=== PATIENT | female | born 1965 | race Caucasian/White ===

== ENCOUNTER 2020-06-07 07:31 | Outpatient (CLI) | payer BC, SELFPAY ==
--- NOTE | ~2020-06-07 | MR_ITS ---
EXAMINATION: MR knee RT wo con DATE: 06/07/2020 09:22 INDICATION: Right knee pain TECHNIQUE: Magnetic resonance imaging (MRI) of the right knee was performed without intravenous contr ast. Sequences included coronal PD-weighted FSE, coronal PD-weighted FS FSE, sagittal T2-weighted FS E, sagittal PD-weighted FS FSE and axial PD weighted fat saturated FSE. COMPARISON: None. FINDINGS: Evaluation mildly limited by mild to moderate motion artifacts some degree on all sequences. Medial compartment: Medial meniscus is normal. Partial-thickness chondral ulceration and fissuring without degenerative s ubchondral changes at the central aspect of the medial tibial plateau as well as the anterior to cent ral weightbearing medial femoral condyle. Lateral compartment: There is lateral extrusion of the lateral meniscal body. Radial tear/avulsion of the posterior root o f the lateral meniscus. Extending medially from the posterior horn is a residual intact meniscofemora l ligament of Hendricks. Small region of partial-thickness chondral ulceration at the anterior weightb earing lateral femoral condyle. There is some chondral surface irregularity along the lateral tibial plateau. Patellofemoral compartment: Extensive patellar cartilage loss with chondral surface irregularity, in places approaching full-thic kness with underlying subarticular edema at the lateral patellar facet. Partial-thickness cartilage l oss with smooth chondral surface along the lateral margin of the lateral trochlea. Ligaments and tendons: Anterior and posterior cruciate ligaments are normal. The medial collateral ligament and fibular beverley ateral ligament complex are normal. The extensor mechanism is normal. The visualized medial and later al hamstring tendons as well as the iliotibial band are normal. Fluid: Physiologic amount of fluid in the joint space. No loose osteochondral bodies identified. Osseous/other: Normal marrow signal aside from the small focus of subarticular edema at the lateral patellar facet. No fracture or pathologic marrow replacing process. IMPRESSION: 1. Radial tear/avulsion at the posterior root of the lateral meniscus with lateral extrusion of the m eniscal body. 2. 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 Sensitivity and specificity for evaluation of the cartilage is however limited by motion artifact. Reviewed, dictated and finalized at location A. IMPRESSION: 1. Radial tear/avulsion at the posterior root of the lateral meniscus with late ral extrusion of the meniscal body. 2. Mild tricompartmental osteoarthritis with moderate to high-grade patellar ch ondromalacia and regions of moderate chondromalacia in the medial and lateral c ompartments. Sensitivity and specificity for evaluation of the cartilage is how ever limited by motion artifact.
== END 2020-06-07 07:32 | disposition home or self-care (01) ==
PROVIDERS: PCP Orthopaedic Surgery; Visit Provider Orthopaedic Surgery
DX: M25.561 Pain in right knee (principal); S83.281A Other tear of lateral meniscus, current injury, right knee, initial encounter; M17.11 Unilateral primary osteoarthritis, right knee; M94.261 Chondromalacia, right knee
CPT/HCPCS: 73721

== ENCOUNTER 2020-06-21 15:11 | Outpatient (CLI) | payer BC, SELFPAY ==
--- NOTE | 2020-06-21 15:30 | ECG_ITS ---
Measurements Intervals [place] Rate: 64 P: 39 MD: 177 QRS: 21 QRSD: 96 T: 21 QT: 408 QTc: 423 Interpretive Statements SINUS RHYTHM DELAYED PRECORDIAL R/S TRANSITION BASELINE ARTIFACT- II, III, AVR, AVL, AVF, V3-V6 BORDERLINE ECG Electronically Signed On 06-21-2020 15:36:29 CDT by Nate Boateng D.O.
== END 2020-06-21 15:12 | disposition home or self-care (01) ==
PROVIDERS: PCP Family Medicine; Visit Provider Orthopaedic Surgery
DX: Z01.810 Encounter for preprocedural cardiovascular examination (principal); I10 Essential (primary) hypertension
CPT/HCPCS: 93005

== ENCOUNTER → 2020-06-23 02:08 | Outpatient (CLI) | payer BC, SELFPAY ==
[2020-06-24 14:52] LABS: SARS-CoV-2 RNA PCR Negative
== END ==
PROVIDERS: PCP Family Medicine; Visit Provider Orthopaedic Surgery
DX: Z01.812 Encounter for preprocedural laboratory examination (principal); Z20.822 Contact with and (suspected) exposure to COVID-19
CPT/HCPCS: C9803; U0003; U0005

== ENCOUNTER 2020-06-27 01:17 | Day surgery (SDC) | payer BC, SELFPAY ==
[2020-06-18 10:38] VITALS: BMI 32.5
--- NOTE | 2020-06-20 10:11 | PM.IMHP ---
H&P: HPI History of Present Illness Date/Time: Knee Pain 54 year old female presents for Rt knee pain. Pt. states that she does not remember a time frame as to when the Rt knee started causing her pain but she has had weakness in the knee for approx 3years. Pt. states that her mother had OA and a total knee replacement at the age of 5757 years old. She states that she has not had any surgical procedures, injections or physical therapy for the Rt knee. She stated no injury was known. Pt. had an MRI performed and would like to proceed with the next plan of care at this time. Involved knee: right Onset: gradual Location of pain: other (entire knee region with radiating pain ) Pain scale (0-10): 8 Character: dull ache and other (sharp at times ) Timing of pain: intermittent (with periods of longer lasting pain ) Exacerbated by: sitting (crossed leg ), kneeling, squatting and prolonged activity Relieved by: brace, elevation, ice, rest and NSAIDs Associated symptoms: Reports giving way and grating History of occupational/recreational activity with repetitive motion: No History of prior knee injury: No Review of Systems Review of Systems: All systems reviewed & are unremarkable except as noted in HPI and below Constitutional: Constitutional: Denies headache(s) and Denies weakness Eyes: Eyes: Denies blurry vision, Denies change in vision and Denies loss of vision ENT: Denies dizziness, Denies dry mouth, Denies headache(s) and Denies nasal congestion Cardiovascular: Cardiovascular: Denies chest pain, Denies syncope, Denies leg edema and Denies dyspnea on exertion Respiratory: Respiratory: Denies cough and Denies dyspnea on exertion Gastrointestinal: Gastrointestinal: Denies abdominal pain, Denies constipation and Denies diarrhea Genitourinary: Genitourinary: Denies urinary frequency Musculoskeletal: Musculoskeletal: Reports as per HPI and Denies numbness Integumentary/Breasts: Skin/Breast: Reports system reviewed and no additional complaints, except as docu Neurologic: Denies dizziness, Denies syncope, Denies headache(s), Denies loss of vision, Denies numbness and Denies weakness Psychiatric: Psychiatric: Reports no additional psychiatric complaints Endocrine: Endocrine: Reports no additional endocrine complaints Hematologic/Lymphatic: Hematologic/Lymphatic: Reports no additional hematologic/lymphatic complaints [facility] Past Medical History Medical History Chondromalacia Hypertension Lateral meniscus tear Medial meniscus tear Right knee pain Wears glasses Surgical History Surgical History History of x3 History of cholecystectomy 2016 History of hysterectomy 2005 Family History Family History Father Hypertension Family history of cardiovascular disease Family history of heart disease in male family member before age 55 Mother Hypertension Family history of malignant melanoma, Onset Age: 69 Diabetes mellitus Family history of diabetes mellitus in first degree relative Patient's mother is Grandparent Family history of cardiovascular disease Cerebrovascular accident Family history of malignant neoplasm Family history of heart disease in male family member before age 55 Other Arthritis Family history of pancreatic cancer Heart disease High cholesterol Melanoma Social History Social History Smoking status: Never smoker Second hand tobacco smoke exposure: No Alcohol intake: never Substance use: never Substance use type: does not use Gender identity (if verbalized by the patient): Female Meds Home Medications and Allergies Home Medications Medication Instructions Recorded Confirmed Type cholecalciferol (vitamin D3) 25 50 mcg P
[2020-06-27] VITALS (7 sets, daily range): BP systolic 117–155; BP diastolic 68–91; PULSE 70–93; RESP 10–20; TEMP 36.7–37.1; O2SAT 97–100
--- NOTE | 2020-06-27 07:21 | WPDHPUPDATE1 ---
History and Physical Update Update Date/Time: 06/27/20 07:21 History and Physical has been reviewed, including an updated exam of the patient. There are NO changes in the patient's condition. Risks, benefits, and alternatives have been discussed and questions answered. Patient agrees to proceed with procedure.
--- NOTE | 2020-06-27 10:47 | SUR.PREOP ---
crutch training done,pt given care notes on crutch training and ordered crutches. pt informed delay in procedure,called spouse asked to come in .
--- NOTE | 2020-06-27 10:56 | SUR.PREOP ---
1/2inch scratch to right knee,healing,pt states 2 weeks old,called into or room relayed message to dr aviles's circulating rn yola wilks and states to continue preparing pt ,dr aviles will see pt after present surgery.
[2020-06-27] MEDS: ACETAMINOPHEN 500 MG TABLET 1000 MG PO (11:00)
[2020-06-27] MEDS: CELECOXIB 200 MG CAPSULE PO (11:00)
[2020-06-27] MEDS: LACTATED RINGERS 1,000 ML 30 ML IV CONT (11:07)
--- NOTE | 2020-06-27 12:20 | SUR.PREOP ---
dr aviles at side observed scratch to right knee,to proceed with surgery.marked right knee.
--- NOTE | 2020-06-27 12:35 | WPDANESEPPF ---
Anes - Initial Pre Proc Eval Procedure: Operation Date: 06/27/20 12:00 Proposed Procedures p Right Knee Arthroscopy - Santosh Johnston MD Date/Time: 06/27/20 12:35 Surgeon: Santosh Johnston MD Pre Op Diagnosis: right knee lateral meniscus tear, chondromalsia Patient Data Age: 54 Gender: F Height: 5 ft 9 in Weight: 104.4 kg Last Vital Signs Temp 37.1 C 06/27/20 10:10 Pulse 85 06/27/20 10:10 Resp 16 06/27/20 10:10 BP 143/91 H 06/27/20 10:10 Pulse Ox 100 06/27/20 10:10 Allergies Allergy/AdvReac Type Severity Reaction Status Date / Time No Known Allergies Allergy Verified 06/27/20 10:32 Home Medications Medication Instructions Recorded Confirmed Type cholecalciferol (vitamin D3) 25 50 mcg PO DAILY tablet 05/31/20 06/27/20 History mcg (1,000 unit) tablet losartan 50 mg-hydrochlorothiazide 1 tablet PO DAILY 05/31/20 06/27/20 History 12.5 mg tablet metoprolol succinate 50 mg 50 mg PO HS 05/31/20 06/27/20 History tablet,extended release 24 hr omeprazole 20 mg capsule,delayed 20 mg PO DAILY 05/31/20 06/27/20 History release vitamin B comp and C no.3 15 mg-10 1 cap PO DAILY 05/31/20 06/27/20 History mg-50 mg-5 mg-300 mg capsule tramadol 50 mg tablet 50 mg PO BID PRN #30 tablet 06/12/20 06/27/20 Rx ibuprofen 600 mg PO Q6H PRN 06/18/20 06/27/20 History Patient hx anesthesia problems: post op nausea/vomiting Family hx anesthesia problems: none PMFSH Past Medical History Medical History Chondromalacia Hypertension Lateral meniscus tear Medial meniscus tear Right knee pain Wears glasses Surgical History Surgical History History of x3 History of cholecystectomy 2016 History of hysterectomy 2005 Family History Family History Father Hypertension Family history of cardiovascular disease Family history of heart disease in male family member before age 55 Mother Hypertension Family history of malignant melanoma, Onset Age: 69 Diabetes mellitus Family history of diabetes mellitus in first degree relative Patient's mother is Grandparent Family history of cardiovascular disease Cerebrovascular accident Family history of malignant neoplasm Family history of heart disease in male family member before age 55 Other Arthritis Family history of pancreatic cancer Heart disease High cholesterol Melanoma Social History Social History Smoking status: Never smoker Second hand tobacco smoke exposure: No Alcohol intake: never Substance use: never Substance use type: does not use Living arrangements: with family Gender identity (if verbalized by the patient): Female Anes - Eval Final PreProcedure Day of Procedure 06/27/20 12:35 Patient weight: obese Heart: regular rate and rhythm Lungs: clear to auscultation Airway: Mallampati scale class 1 Neurological: alert and oriented Last oral intake: >/= 8 hours ASA classification: II Emergent: no Anesthetic plan: proceed Anesthesia type and monitoring: general LMA and standard monitoring Informed Consent: The patient's anesthetic plan and its attendant risks and benefits were discussed with the patient/family/POA. Questions were solicited and answers provided to the satisfaction of the patient/family/POA.
[2020-06-27] MEDS: SCOPOLAMINE 1.5 MG PATCH TRANSDERM (12:45)
[2020-06-27] MEDS: ceFAZolin 2 GM/D5W 50 ML 2 GM/50 ML BAG IVPB (13:29)
[2020-06-27] MEDS: BUPIVACAINE HCL 0.5% PF 30 ML VIAL INFILTRATE (14:08)
--- NOTE | 2020-06-27 14:37 | PM.PROC ---
Procedure Note - Detailed Date of procedure: 06/27/20 Pre-op diagnosis: right knee lateral meniscus tear, chondromalsia Post-op diagnosis: same Procedure performed: RIGHT KNEE SCOPE WITH PARTIAL LATERAL MENISCECTOMY AND MAJOR SYNOVECTOMY Description of procedure: PATIENT WAS TAKEN TO THE OR. RIGHT LEG WAS PREPPED AND DRAPED STERILE. TROCARS WERE PLACED IN THE USUAL FASHION. CAMERA WAS INTRODUCED. THERE WAS CHONDROMALACIA TO THE PATELLA FEMORAL JOINT. THERE WAS A LOT OF SYNOVITIS IN ALL COMPARTMENTS. THE MEDIAL COMPARTMENT SHOWED CHONDROMALACIA TO THE MED FEMORAL CONDYLE. THERE WAS A PARTIAL CHONDRAL DEFECT TO THE MEDIAL FEMORAL CONDYLE A SHAVER WAS USED TO PREFORM A CHONDROPLASTY. THERE WAS NO MEDIAL MENISCUS TEAR. THE ACL WAS INTACT. THE LATERAL MENISCUS WAS TORN AT THE MENISCAL ROOT AND UNDERWENT RESECTION OF ABOUT 10%. THE LAT FEMORAL CONDYLE HAD A LARGE PARTIAL CHONDRAL DEFECT AND UNDERWENT CHONDROPLASTY. A SYNOVECTOMY WAS PREFORMED. THE PATELLO FEMORAL JOINT UNDERWENT CHONDROPLASTY. SYNOVECTOMY WAS PREFORMED IN THE SUPERIOR MEDIAL COMPARTMENT. THE WOUNDS WERE APPROXIMATED WITH 4.0 NYLON. STERILE DRESSING WAS APPLIED. PATIENT WAS EXTUBATED. Anesthesia: GLMA Surgeon: Santosh Johnston MD Estimated blood loss (mL): 5 Complications: No immediate complications Condition: stable Disposition: PACU
== END 2020-06-27 16:12 | disposition home or self-care (01) ==
PROVIDERS: PCP Family Medicine; Visit Provider Orthopaedic Surgery
PROC: (CPT 29870; principal; 2020-06-27 12:00)
DX: M23.361 Other meniscus derangements, other lateral meniscus, right knee (principal); M65.861 Other synovitis and tenosynovitis, right lower leg; M94.261 Chondromalacia, right knee; I10 Essential (primary) hypertension; E66.9 Obesity, unspecified; Z68.34 Body mass index [BMI] 34.0-34.9, adult
CPT/HCPCS: 29881; 29876; A9270; J0690; J1100; J2250; J2405; J2704; J3010; J7120

== ENCOUNTER 2024-10-05 19:38 | Emergency (ER) | payer BC, SELFPAY ==
--- NOTE | ~2024-10-05 | CT_ITS ---
EXAMINATION: CT abdomen pelvis w con DATE: 10/05/2024 20:42 INDICATION: Generalized abdominal pain TECHNIQUE: Computed tomography (CT) of the abdomen and pelvis was performed with 100 cc Omnipaque 350 intravenous contrast. The dose-length product was 940.77 mGy-cm. Automated exposure control and iterative reconstruction technique were employed. COMPARISON: None. FINDINGS: Lung bases unremarkable. Heart size normal. No significant pleural or pericardial effusion. Fatty infiltration of the liver. Mild segmental thickening of the terminal ileum, suspicious for inflammatory bowel disease. No obstruction. Normal appendix. No significant vascular abnormality. No lym phadenopathy. The spleen, pancreas, adrenal glands and kidneys are unremarkable. Status post cholecystectomy. IMPRESSION: 1. Segmental thickening of the terminal ileum, suspicious for inflammatory bowel disease (i.e. Crohn's). Reviewed, dictated and finalized at location A. IMPRESSION: 1. Segmental thickening of the terminal ileum, suspicious for inflammatory paddy l disease (i.e. Crohn's).
[2024-10-05 19:40] VITALS: BP 176/93; PULSE 119; RESP 19; TEMP 37; O2SAT 96
--- OUTSIDE RECORDS SUMMARY | 2024-10-05 20:00 | XMS_ITS | Clinical Summary ---
Author Organization [employer] [facility] Address [address] [address] Phone Care Team Providers Care Natural Resources Manager Name Role Phone Lula Ferrell MD Primary Care Provider [phone] Allergies No known active allergies Medications Semaglutide-Weigh t Management 1.7 MG/0.75ML solution auto-injector Inject 1.7 mg under the skin 1 (one) time per week. 3 mL 2 09/24/19 25 025 Active metoprolol succinate XL (Toprol-XL) 50 MG 24 hr tabletIndications :Primary hypertension Take 2 tablets (100 mg) by mouth at bedtime. 90 tablet 3 09/24/19 25 Active losartan-hydroCHL OROthiazide (Hyzaar) 50-12.5 MG tabletIndications :Primary hypertension Take 1 tablet by mouth in the morning. 90 tablet 3 09/24/19 25 Active sertraline (Zoloft) 50 MG tabletIndications :Reactive depression Take 1 tablet (50 mg) by mouth at bedtime. 90 tablet 3 09/27/19 25 026 Active atorvastatin (Lipitor) 10 MG tabletIndications :Mixed hyperlipidemia Take 1 tablet (10 mg) by mouth before bedtime. 30 tablet 5 09/28/19 25 026 Active sertraline (Zoloft) 50 MG tabletIndications :Reactive depression Take 1 tablet (50 mg) by mouth in the morning. 30 tablet 1 09/24/19 25 025 Discontinued(Ot her) metoprolol succinate XL (Toprol-XL) 50 MG 24 hr tablet Take 100 mg by mouth at bedtime. 025 Discontinued(Re order) losartan-hydroCHL OROthiazide (Hyzaar) 50-12.5 MG tablet Take 1 tablet by mouth in the morning. 025 Discontinued(Re order) sertraline (Zoloft) 50 MG tabletIndications :Reactive depression Take 1 tablet (50 mg) by mouth at bedtime. 90 tablet 3 09/24/19 25 025 Discontinued sertraline (Zoloft) 50 MG tablet Take 1 tablet (50 mg) by mouth before bedtime. 90 tablet 3 09/24/19 25 025 Discontinued Active Problems No known active problems Encounters Date Type Department Care Team Description 09/27/2024 Orders Only [address] [id number] Lula Ferrell MD Mixed hyperlipidemia (Primary Dx) 09/26/2024 Telephone [facility] [address] [place] [id number] Lula Ferrell MD Results 09/26/2024 Orders Only [address] [address] Lula Ferrell MD Anxiety and depression (Primary Dx); Reactive depression 09/26/2024 Results Follow-Up [address] [address] Lula Ferrell MD CBC and differential, TSH REFLEX TO T4F, Lipid panel, Comprehensive metabolic panel 09/23/2024 1:45 PM CDT Office Visit [address] [address] Lula Ferrell MD Insomnia associated with menopause (Primary Dx); Reactive depression; Primary hypertension; Breast screening; Anxiety 09/23/[address] [address] Lula Ferrell MD Reactive depression 09/23/2024 Travel from Last 3 Months Family History Medical History Relation Name Comments Down syndrome Son born in 1992 Relation Name Status Comments Son Social History Tobacco Use Types Packs/Day Years Used Date Smoking Tobacco: Never Smokeless Tobacco: Never Tobacco Cessation:Counseling Given: Not Answered Comments Unknown Sex and Gender Information Value Date Recorded Sex Assigned at Female 09/20/2024 8:19 AM EDT Legal Sex Female 10:27 AM EDT Gender Identity Female 09/20/2024 8:19 AM EDT Sexual Orientation Straight 09/23/2024 2: 00 PM EDT Last Filed Vital Signs Vital Sign Reading Time Taken Comments Blood Pressure 145/90 09/23/2024 1:30 PM CDT Pulse 71 09/23/2024 1:30 PM CDT Temperature 36.1 C (96.9 F) 09/23/2024 1:30 PM CDT Respiratory Rate - - Oxygen Saturation 97% 09/23/2024 1:30 PM CDT Inhaled Oxygen Concentration - - Weight 103 kg (226 lb 8 oz) 09/23/2024 1:30 PM C DT Height 175.3 cm (5' 9) 09/23/2024 1:30 PM CDT Body Mass Index 33.45 09/23/2024 1:30 PM CDT Plan of Treatment Upcoming Encounters Date Type Department Care Team (Late st Contact Info) Description 12/26/2024 1:45 PM SAP TRAINER Office Visit [facility] [address] [facility] [place] [address] uLla Ferrell MD [address] [place] [address] Health Maintenance Due Date Last Done Comments CT Colonography 1967 Colonoscopy 1967 Colorectal Cancer Screening 1967 FIT-DNA 1967 FIT 1967 FOBT 1967 HIV Screening 1967 Sigmoidoscopy 1967 MMR Vaccines (1 of 1 - Stand lidia series) 09/23/1968 DTaP/Tdap/Td Vaccines (1 - Tdap) 09/23/1974 Hepatitis B Screening 09/23/1985 Hepatitis C Screening 09/23/1985 Well Adult Exam (Age 18+ Shalini ual Physical) 09/23/1985 Hepatitis B Vaccines (1 of 3 - 19+ 3-dose series) 09/23/1986 Pap Smear 09/23/1988 Cervical Cancer Screening 09/23/1997 HPV/Cotest 09/23/1997 Mammogram 2007 Pneumococcal Vaccine: 50+ Ye ars (1 of 1 - PCV) 09/23/2017 Zoster Vaccines (1 of 2) 09/23/2017 COVID-19 Vaccine ( - 2023-2 5 season) 2023 Influenza Vaccine (#1) 2024 HIB Vaccines Aged Out No longer eligi ble based on patient's age to complete this topic HPV Vaccines (No Doses Required) Completed Hepatitis A Vaccines Aged Out No long er eligible based on patient's age to complete this topic IPV Vaccines Aged Out No longer eligi ble based on patient's age to complete this topic Meningococcal B Vaccine Aged Out No l onger eligible based on patient's age to complete this topic Meningococcal Vaccine Aged Out No fabien shea eligible based on patient's age to complete this topic Rotavirus Vaccines Aged Out No longer eligible based on patient's age to complete this topic Procedures Procedure Name Priority Date/Time Associated Diagnosis Comments COMPREHENSIVE METABOLIC PANEL Routine 09/23/2024 2:45 PM CDT Primary hypertension LIPID PANEL Routine 09/23/2024 2:45 PM CDT Primary hypertension TSH REFLEX TO T4F Routine 09/23/2024 2:4 5 PM CDT Reactive depression Primary hypertension CBC AND DIFFERENTIAL Routine 09/23/2024 2:45 PM CDT Reactive depression Primary hypertension from Last 3 Months Results * TSH REFLEX TO T4F (09/23/2024 2:45 PM CDT) TSH 1.16 0.40 - 4.50 mIU/L [facility] Blood Venous blood specimen / Unknown 09/23/2024 2:45 PM CDT 09/23/2024 2:45 PM CDT Narrative [facility] [place] - 2024 7:32 AM CDT FASTING:NO FASTING: NO us Lula Ferrell MD LAB BLOOD ORDERABLES Final Res ult [facility] [place] [address] [address] [address], * CBC and differential (09/23/2024 2:45 PM CDT) WBC 8.7 3.8 - 10.8 Thousand/u L [facility] RBC 4.80 3.80 - 5.10 Million/uL [facility] HEMOGLOBIN 14.6 11.7 - 15.5 g/dL [facility] HEMATOCRIT 44.8 35.0 - 45.0 % [facility] MCV 93.3 80.0 - 100.0 fL [facility] MCH 30.4 27.0 - 33.0 pg [facility] MCHC 32.6 32.0 - 36.0 g/dL [facility] Comment: For adults, a slight decrease in the calculated MCHC value (in the range of 30 to 32 g/dL) is most likely not clinically significant; however, it should be interpreted with caution in correlation with other red cell parameters and the patient's clinical condition. RDW 12.5 11.0 - 15.0 % [facility] PLATELETS 399 140 - 400 Thousand/u L [facility] MPV 10.0 7.5 - 12.5 fL [facility] ABSOLUTE NEUTROPHILS 5,490 1,500 - 7,800 cells/uL [facility] ABSOLUTE LYMPHOCYTES 2,401 850 - 3,900 cells/uL [facility] MONOCYTES ABSOLUTE 626 200 - 950 cells/uL [facility] EOSINOPHILS ABSOLUTE 122 15 - 500 cells/uL [facility] BASOPHILS ABSOLUTE 61 0 - 200 cells/uL [facility] NEUTROPHILS 63.1 % [facility] LYMPHOCYTES % 27.6 % [facility] MONOCYTES 7.2 % [facility] EOSINOPHILS 1.4 % [facility] BASOPHILS 0.7 % [facility] Blood Venous blood specimen / Unknown 09/23/2024 2:45 PM CDT 09/23/2024 2:45 PM CDT Narrative [facility] - 2024 7:32 AM CDT FASTING:NO FASTING: NO Lula Ferrell MD LAB BLOOD ORDERABLES Final Res ult Performing Organization Address [facility] Co de Phone Number [employer]) GALDINO ARMIJOEXKezia [id number] [facility] [place] [address], * (ABNORMAL) Lipid panel (09/23/2024 2:45 PM CDT) CHOLESTEROL 257(H) <200 mg/dL [facility] HDL CHOLESTEROL 61 > OR = 50 mg/dL [facility] TRIGLYCERIDE 158(H) <150 mg/dL [facility] LDL-C 166(H) mg/dL (calc) [facility] Comment: Reference range: <100 Desirable range <100 mg/dL for primary prevention; <70 mg/dL for patients with CHD or diabetic patients with > or = 2 CHD risk factors. LDL-C is now calculated using the Trish calculation, which is a validated novel method providing better accuracy than the Friedewald equation in the estimation of LDL-C. Manav RODRIGUEZ et al. GRADY. 2013;310(19): 1497-3824 (http://education.[employer].Family-Mingle/faq/TTE098) CHOL/HDLC RATIO 4.2 <5.0 (calc) [facility] NON HDL CHOLESTEROL 196(H) <130 mg/dL (calc) [facility] Comment: For patients with diabetes plus 1 major ASCVD risk factor, treating to a non-HDL-C goal of <100 mg/dL (LDL-C of <70 mg/dL) is considered a therapeutic option. Blood Venous blood specimen / Unknown 09/23/2024 2:45 PM CDT 09/23/2024 2:45 PM CDT Narrative [facility] - 2024 7:32 AM CDT FASTING:NO FASTING: NO Lula Ferrell MD LAB BLOOD ORDERABLES Final Res ult Performing Organization Address [facility] Co de Phone Number [employer]) GALDINO ROLON [address] [place] [address], * (ABNORMAL) Comprehensive metabolic panel (09/23/2024 2:45 PM CDT) Pathologist [facility] GLUCOSE 87 65 - 139 mg/dL [facility] Comment: Non-fasting reference interval BUN 21 7 - 25 mg/dL [facility] CREATININE SERUN 0.84 0.50 - 1.03 mg/dL [facility] EGFR 81 > OR = 60 mL/min/1. 73m2 [facility] BUN/CREATININE RATIO SEE NOTE: 6 - 22 (calc) [facility] Comment: Not Reported: BUN and Creatinine are within reference range. SODIUM 135 135 - 146 mmol/L [facility] POTASSIUM 4.1 3.5 - 5.3 mmol/L [facility] CHLORIDE 95(L) 98 - 110 mmol/L [facility] CARBON DIOXIDE 26 20 - 32 mmol/L [facility] CALCIUM 10.3 8.6 - 10.4 mg/dL [facility] PROTEIN TOTAL 8.0 6.1 - 8.1 g/dL [facility] ALBUMIN 5.0 3.6 - 5.1 g/dL [facility] GLOBULIN 3.0 1.9 - 3.7 g/dL (calc) [facility] A/G RATIO 1.7 1.0 - 2.5 (calc) [facility] BILIRUBIN TOTAL 0.5 0.2 - 1.2 mg/dL [facility] ALKALINE PHOSPHATASE, SERUM 122 37 - 153 U/L [facility] AST 18 10 - 35 U/L [facility] ALT 26 6 - 29 U/L [facility] Blood Venous blood specimen / Unknown 09/23/2024 2:45 PM CDT 09/23/2024 2:45 PM CDT Narrative [facility] - 2024 7:32 AM CDT FASTING:NO FASTING: NO us Lula Ferrell MD LAB BLOOD ORDERABLES Final Res ult [facility] [place] [id number] [place] [address], from Last 3 Months Insurance [employer] Care Teams Natural Resources Manager Relationship Specialty Start Date End Date Lula Ferrell MD [address] [place] [id number] PCP - General Internal Medicine 09/23/24
--- OUTSIDE RECORDS SUMMARY | 2024-10-05 20:00 | XMS_ITS | Clinical Summary ---
Author Organization [facility] al Address [address] [place] [address] Care Team Providers Care Plaster Whittler Name Role Phone Brianda Arcos Primary Care Provider + Allergies No known active allergies Medications calcium carbonate-vitam in D3 (CALTRATE 600 + D) 1500 mg (600 mg elemental) -400 units per tablet Take 1 tablet by mouth daily 3 Active losartan-hydroC HLOROthiazide (HYZAAR) 50-12.5 mg per tablet Take 1 tablet by mouth daily 3 Active metoprolol XL (TOPROL-XL) 50 mg extended release tablet Take 1 tablet (50 mg total) by mouth daily 3 Active omeprazole (PriLOSEC) 20 mg capsule Take by mouth daily 3 Active Mounjaro 10 mg/0.5 mL pen injector Inject 10 mg under the skin once a week 3 Active acetaminophen (TYLENOL) 325 mg tabletIndicatio ns:Pain Take 2 tablets (650 mg total) by mouth every 6 (six) hours 30 tablet 3 Active aspirin 81 mg enteric coated tabletIndicatio ns:Deep Vein Thrombosis Prevention Take 1 tablet (81 mg total) by mouth 2 (two) times a day for 14 days 28 tablet 3 Active bisacodyl EC (DULCOLAX EC) 5 mg EC tablet Take 2 tablets (10 mg total) by mouth daily as needed for constipation (If no results 24 hours after milk of magnesia (may give bisacodyl supp if not tolerating PO)) 30 tablet 3 Active ramelteon (ROZEREM) 8 mg tabletIndicatio ns:Sleep-Onset Insomnia Take 1 tablet (8 mg total) by mouth nightly 5 tablet 3 Active HYDROcodone-elysia taminophen (NORCO) 5-325 mg per tabletIndicatio ns:Pain Take 1 tablet by mouth every 6 (six) hours as needed for pain 28 tablet 3 Active cyclobenzaprine (FLEXERIL) 5 mg tabletIndicatio ns:Muscle Spasm Take 1 tablet (5 mg total) by mouth every 8 (eight) hours 30 tablet 3 Active traMADoL (ULTRAM) 50 mg tablet Take 1 tablet (50 mg total) by mouth every 6 (six) hours as needed for pain 28 tablet 3 Active Active Problems Problem Noted Date Diagnosed Date SDH (subdural hematoma) 08/08/2022 Left hip pain 08/07/2022 Tear of left hamstring 08/07/2022 Social History Tobacco Use Types Packs/Day Years Used Date Smoking Tobacco: Never Passive Smoke Exposure: Never Smokeless Tobacco: Never Tobacco Cessation:Counseling Given: No PHQ-2 Answer Date Recorded PHQ-2 Total Score (If total score is 3 or more points, staff should administer the PHQ-9) 0 08/08/2022 Personal Safety Answer Date Recorded Have you ever been in or are you currently in a harmful physical or emotional relationship or is someone making you feel afraid or unsafe? Denies 08/09/2022 Comments No Sex and Gender Information Value Date Recorded Sex Assigned at Not on file Legal Sex Female 2:08 PM CDT Gender Identity Not on file Sexual Orientation Not on file Obstetrics History Last Filed Vital Signs Vital Sign Reading Time Taken Comments Blood Pressure 149/82 08/10/2022 9:29 AM CDT Pulse 80 08/10/2022 9:29 AM CDT Temperature 36.7 C (98.1 F) 08/10/2022 7:40 AM CDT Respiratory Rate 20 08/10/2022 7:40 AM CDT Oxygen Saturation 100% 08/10/2022 9:29 AM CDT Inhaled Oxygen Concentration - - Weight 99.9 kg (220 lb 3.8 oz) 08/08/2022 5:35 A M CDT Height 175.3 cm (5' 9) 08/08/2022 5:35 AM CDT Body Mass Index 32.52 08/08/2022 5:35 AM CDT Plan of Treatment Health Maintenance Due Date Last Done Comments Breast Cancer Screening-Mammogram 1967 Colon Cancer Screening-Colonoscopy 1967 Hepatitis C Screening 1967 Hepatitis B Screening 09/23/1985 Regular Well Visit/Exam 18-64 09/23/1985 DTaP/Tdap/Td Vaccine (1 - Tdap) 06/06/2015 06/05/2015 Zoster Vaccine (1 of 2) 09/23/2017 Depression Screening 08/08/2023 08/07/2022, 08/07/2022 Influenza Vaccine (#1) 2024 , 01/04/2019 Pneumococcal vaccine <65 Aged Out No longer eligible based on patient's age to complete this topic Medical Devices Implanted Type Area Quality Improvement Coordinator Device Identifier Shelf Expiration Date Model / Serial / Lot [employer] Corkscrew Ii Fiberwire 5.5mm 16.3mm 2 2 Full Thread Brea Suture [id number] - S0 - [id number] Implanted:Qty: 2 on 08/09/2022 by Maulik Mitchell MD at [facility] Left: Femur [employer] [id number] 04/16/2027 [id number] / 0 / [id number] Insurance [employer] [place] [employer] O[place] [employer] [place] [employer] [employer] [place] [employer] [employer] [place] Advance Directives For more information, please contact: [phone] * Full Code (Latest Code Status on File) Date Activated Date Inactivated Comments 08/08/2022 5:35 AM 08/10/2022 4:29 PM Care Teams Plaster Whittler Relationship Specialty Start Date End Date Brianda Arcos PA PCP - General Physician Broth Mixer 08/08/22
[2024-10-05 20:06] LABS: Hematocrit 39.5 % (37.0-47.0); Hemoglobin 13.3 g/dL (12.0-15.0); Immature Granulocyte Percent A 0.4 % (0-0.5); Lymphocytes Absolute Auto 1.05 K/mm3 (0.9-3.2); Mean Corpuscular HGB Conc 33.7 g/dl (32-36); Mean Corpuscular Hemoglobin 30.0 pg (26-34); Mean Corpuscular Volume 89.0 fl (80-100); Nucleated Red Blood Cells Absolute Auto 0.000 K/mm3 (0.0-0.012); Nucleated Red Blood Cells Perc 0.0 % (0.0-0.2); Platelet Count Result 299 k/mm3 (150-375); Red Blood Count 4.44 M/mm3 (4.2-5.4); White Blood Count 9.6 K/mm3 (4.5-10.0)
[2024-10-05 20:13] LABS: Add Urine Microscopic? YES; Appearance Urine Clear (Clear); Glucose Urine UA Negative (Negative); Leukocyte Esterase Ur Trace LEU/UL (Negative); Nitrate Urine Negative (Negative); Non Pathogenic Casts 0-2; Specific Grav Ur 1.024 (1.001-1.035)
--- NOTE | 2024-10-05 20:14 | ED.ABDPAIN ---
HPI - Abdominal Pain General Chief Complaint: Abdominal Pain Stated Complaint: Abdominal pain, N/constipation Time Seen by Provider: 10/05/24 19:49 History of Present Illness HPI narrative: Patient is a 59-year-old female who presents the emergency department this evening complaining of generalized abdominal pain since Thursday. States that initially she thought she was constipated so she took some stool softeners which gave her diarrhea. Admits to nausea but denies any vomiting episodes. Denies any sick contacts at home. States that today she felt feverish which was concerning for her so she finally decided to come to the emergency department for further evaluation. Patient is unsure if this is due to a stomach with but states that there are no sick contacts at home. Denies any URI symptoms, any chest pain shortness of breath. No additional symptoms or concerns at this time. Related Data Home Medications ?Medication ?Instructions ?Recorded ?Confirmed ?Last Taken ?Type cholecalciferol (vitamin D3) 25 50 mcg PO DAILY 05/31/20 07/12/20 06/20/20 History mcg (1,000 unit) tablet losartan 50 mg-hydrochlorothiazide 1 tablet PO DAILY 05/31/20 07/12/20 06/26/20 History 12.5 mg tablet metoprolol succinate 50 mg 50 mg PO HS 05/31/20 07/12/20 06/26/20 History tablet,extended release 24 hr omeprazole 20 mg capsule,delayed 20 mg PO DAILY 05/31/20 07/12/20 06/26/20 History release vitamin B comp and C no.3 15 mg-10 1 cap PO DAILY 05/31/20 07/12/20 06/20/20 History mg-50 mg-5 mg-300 mg capsule (B Complex Plus Vitamin C) ibuprofen 200 mg capsule 600 mg PO Q6H PRN Pain 06/18/20 07/12/20 06/20/20 History Allergies Allergy/AdvReac Type Severity Reaction Status Date / Time No Known Allergies Allergy Verified 10/05/24 19:43 Review of Systems Review of Systems: All systems are reviewed and are negative unless stated otherwise in the HPI. [facility] Past Medical History Medical History Chondromalacia Lateral meniscus tear Hypertension Wears glasses Medial meniscus tear Right knee pain Surgical History Surgical History History of cholecystectomy 2016 History of hysterectomy 2005 History of x3 Family History Family History Father Hypertension Family history of cardiovascular disease Family history of heart disease in male family member before age 55 Mother Hypertension Family history of malignant melanoma, Onset Age: 69 Diabetes mellitus Family history of diabetes mellitus in first degree relative Patient's mother is Grandparent Family history of cardiovascular disease Cerebrovascular accident Family history of malignant neoplasm Family history of heart disease in male family member before age 55 Other Arthritis Family history of pancreatic cancer Heart disease High cholesterol Melanoma Social History Social History Second hand tobacco smoke exposure: No Alcohol intake: never Substance use: never Substance use type: does not use Living arrangements: with family Gender identity (if verbalized by the patient): Female Exam Narrative: General: Alert, awake, afebrile, in no acute distress. HEENT: PERRL, no rhinorrhea, no post nasal drip, oropharynx clear. Neck: Trachea midline, no JVD, no lymphadenopathy. Cardiovascular: Regular rate and rhythm, no murmurs, rubs or gallops, no peripheral edema. Respiratory: Clear to auscultation bilaterally, no tachypnea, no wheezing, no rhonchi, no rubs, no respiratory distress. Abdomen: Soft, nontender, nondistended, no rebound, no guarding, no peritoneal signs. Musculoskeletal: No joint swelling or deformity, normal muscle tone. Skin: No rashes or petechia, no signs of infection. Psychiatric: Alert and oriented, normal behavior and judgment for situation. Neurological: Alert and oriented to person, place, and time. Follows all commands. No focal deficits, speech is clear and fluent. Course Vital Signs Vital signs: Vital Signs Temperature 98.6 F 10/05/24 19:40 Pulse Rate 119 H 10/05/24 19:40 Respiratory Rate 10/05/24 19:40 Blood Pressure 176/93 H 10/05/24 19:40 Pulse Oximetry 96 10/05/24 19:40 Oxygen Delivery Room Air 10/05/24 19:40 Temperature 98.6 F 10/05/24 19:40 Pulse Rate 119 H 10/05/24 19:40 Respiratory Rate 19 10/05/24 19:40 Blood Pressure 176/93 H 10/05/24 19:40 Pulse Oximetry 96 10/05/24 19:40 Oxygen Delivery Room Air 10/05/24 19:40 MDM - Abdominal Pain MDM Narrative Medical decision making narrative: The patient was evaluated by myself in the emergency department. History is obtained from patient who is an independent historian and physical exam was performed. External medical records were reviewed at this time. IV was established and pertinent tests were ordered. Laboratory results obtained revealing no acute process. Urinalysis unremarkable. Imaging studies obtained included CT abdomen pelvis with IV contrast which was independently interpreted by me revealing: IMPRESSION: 1. Segmental thickening of the terminal ileum, suspicious for inflammatory bowel disease (i.e. Crohn's). Patient was informed of these findings at bedside instructed this will need to follow-up with GI regarding further workup to rule out inflammatory bowel disease. Denies any history of inflammatory bowel disease or any family history of inflammatory bowel disease. Differential diagnosis considerations include constipation, gastroenteritis, diverticulitis, gastritis. Comorbidities impacting this visit include none. I have evaluated and discussed social determinants of health with the patient that could potentially impact subsequent diagnosis and treatment plans. On repeat assessment of the patient, reevaluation revealed that the patient is doing well and is in no acute distress. Patient symptoms have improved since she arrived to our emergency department. Repeat vital signs were all reviewed and noted to be stable. Differential diagnosis and treatment plan were discussed with the patient at bedside. Patient agrees with discussion and after shared medical decision making agrees with discharge. All questions were answered to the patient's satisfaction. Patient will follow up with GI in 3-5 days. Patient was provided with strict return precautions and instructed to return to the emergency department if any new or worsening symptoms develop. The patient was discharged in stable condition. Lab Data 10/05/24 19:57 10/05/24 19:57 Labs: Lab Results 10/05/24 Range/Units 19:57 WBC 9.6 (4.5-10.0) K/mm3 RBC 4.44 (4.2-5.4) M/mm3 Hgb 13.3 (12.0-15.0) g/dL Hct 39.5 (37.0-47.0) % MCV 89.0 (80-100) fl MCH 30.0 (26-34) pg MCHC 33.7 (32-36) g/dl RDW 12.4 (11.5-14.5) % Plt Count 299 (150-375) k/mm3 MPV 9.4 (7.4-10.4) fl Immature Gran % (Auto) 0.4 (0-0.5) % Neut % (Auto) 80.9 H (45.5-73.1) % Lymph % (Auto) 11.0 L (18.3-44.2) % Hendricks % (Auto) 7.3 (2.6-8.5) % Eos % (Auto) 0.1 (0-4.4) % Baso % (Auto) 0.3 (0.2-1.2) % Lymph # (Auto) 1.05 (0.9-3.2) K/mm3 Hendricks # (Auto) 0.7 H (0.1-0.6) K/mm3 Eos # (Auto) 0.0 (0-0.3) K/mm3 Baso # (Auto) 0.0 (0.0-0.1) K/mm3 Abs Immat Gran (auto) 0.04 H (0.00-0.031) K/mm3 Absolute Neuts (auto) 7.7 H (1.3-6.7) K/mm3 Absolute Nucleated RBC 0.000 (0.0-0.012) K/mm3 Nucleated RBC % 0.0 (0.0-0.2) % Sodium 136 L (137-145) mmol/L Potassium 3.8 (3.4-5.0) mmol/L Chloride 101 (98-107) mmol/L Carbon Dioxide 24 (22-30) mmol/L Anion Gap 11 (4-12) mmol/L BUN 14 (7-17) mg/dL Creatinine 0.86 (0.7-1.0) mg/dL Estim Creat Clear Calc 80 ml/min Estimated GFR > 60 (59 - ) Glucose 174 H (65-110) mg/dL Lactic Acid 1.5 (0.7-2.0) mmol/L Calcium 9.7 (8.4-10.2) mg/dL Magnesium 2.2 (1.6-2.3) mg/dL Total Bilirubin 0.5 (0.2-1.3) mg/dL AST 38 H (14-36) U/L ALT 41 H (6-35) U/L Alkaline Phosphatase 112 (38-126) U/L Total Protein 8.0 (6.3-8.2) g/dL Albumin 4.4 (3.5-5.1) g/dL Lipase 49 (23-300) U/L Urine Color Dark yellow (Yellow) Urine Appearance Clear (Clear) Urine pH 5.5 (5.0-9.0) Ur Specific [place] 1.024 (1.001-1.035) Urine Protein 1+ H (Negative) mg/dL Urine Glucose (UA) Negative (Negative) mg/dL Urine Ketones Trace H (Negative) mg/dL Ur Blood (Man) Negative (Negative) Urine Nitrate Negative (Negative) Urine Bilirubin Negative (Negative) Urine Urobilinogen 0.2 (<2.0) mg/dL Leukocyte Esterase Rfl Trace H (Negative) NIKOLAS/UL Urine RBC 0-2 (0-2) /hpf Urine WBC 0-5 (0-3) /hpf Ur Squamous Epith Cells None seen (Few) /hpf Urine Bacteria None seen /hpf Urine Casts 0-2 Imaging Data Radiologist's impression: ITS Impressions Abdomen/Pelvis CT 10/05/24 20:44 IMPRESSION: 1. Segmental thickening of the terminal ileum, suspicious for inflammatory bowel disease (i.e. Crohn's). Discharge Plan Discharge Clinical Impression: Abdominal pain Patient Disposition: Home Condition: Improved Instructions: Antibiotic Form, Abdominal Pain (ED) Additional Instructions: Please follow-up with the GI doctor you were provided with today regarding your abdominal within the next 3-5 days. Return to ED if any new or worsening symptoms develop. Patient Language: Lebanese Prescriptions: No Action losartan-hydrochlorothiazide 50-12.5 mg tablet 1 tablet PO DAILY metoprolol succinate 50 mg tablet extended release 24 hr 50 mg PO HS omeprazole 20 mg capsule,delayed release(DR/EC) 20 mg PO DAILY cholecalciferol (vitamin D3) 25 mcg (1,000 unit) tablet 50 mcg PO DAILY B Complex Plus Vitamin C 67-11-72-5-300 mg capsule 1 cap PO DAILY Rx Instructions: give with food (meal/snack) tramadol 50 mg tablet 50 mg PO BID PRN (Reason: pain) Qty: 30 0RF ibuprofen 200 mg Capsule 600 mg PO Q6H PRN (Reason: Pain) hydrocodone-acetaminophen 5-325 mg tablet 1 tablet PO Q12H PRN (Reason: pain) Qty: 20 0RF Follow-up/Referrals: Josselyn,URSULA Alegre [Primary Care Provider, Family Practice] Kamaljit Morrison MD [Physician, Gastroenterology] - 3 Days Time of Disposition: 20:54
[2024-10-05 20:18] LABS: Alanine Aminotransferase 41 U/L (6-35); Albumin Level 4.4 g/dL (3.5-5.1); Alkaline Phosphatase 112 U/L (38-126); Anion Gap 11 mmol/L (4-12); Aspartate Amino Transferase 38 U/L (14-36); Bilirubin,Total 0.5 mg/dL (0.2-1.3); Blood Urea Nitrogen 14 mg/dL (7-17); Calcium 9.7 mg/dL (8.4-10.2); Carbon Dioxide 24 mmol/L (22-30); Chloride 101 mmol/L (98-107); Estimated CRCL calculation 80 ml/min; Estimated Glomerular Filt Rate > 60; Glucose 174 mg/dL (65-110); Lipase 49 U/L (23-300); Magnesium 2.2 mg/dL (1.6-2.3); Potassium 3.8 mmol/L (3.4-5.0); Sodium 136 mmol/L (137-145); Total Protein 8.0 g/dL (6.3-8.2)
[2024-10-05 21:05] VITALS: BP 145/80; PULSE 85; RESP 16; O2SAT 98
== END 2024-10-05 21:07 | disposition home or self-care (01) ==
PROVIDERS: Emergency Provider Emergency Medicine; PCP Physician Assistant
DX: R10.84 Generalized abdominal pain (principal); I10 Essential (primary) hypertension; Z90.49 Acquired absence of other specified parts of digestive tract; Z90.710 Acquired absence of both cervix and uterus
CPT/HCPCS: 36415; 74177; 80053; 81001; 83605; 83690; 83735; 85025; 99284; Q9967

== ENCOUNTER 2024-11-09 01:50 | Day surgery (SDC) | payer BC, SELFPAY ==
[2024-10-18 11:10] VITALS: BMI 31.8
--- NOTE | 2024-10-25 12:15 | SUR.PREOP ---
Pt re-scheduled for colonoscopy. Called and updated on new date/time of procedure and instructions. Pt states no change in health history or medications since prior completed interview on 10/18/2024.
[2024-11-09 13:02] VITALS: BP 145/86; PULSE 92; RESP 18; TEMP 37.1; O2SAT 100; BMI 33.5
[2024-11-09] MEDS: LACTATED RINGERS 1,000 ML 150 ML IV CONT (13:21)
--- NOTE | 2024-11-09 13:47 | WPDANESEPPF ---
Anes - Initial Pre Proc Eval Procedure: Operation Date: 11/09/24 14:30 Proposed Procedures p Diagnostic Colonoscopy - Armand Short MD Date/Time: 11/09/24 13:47 Surgeon: Armand Short MD Pre Op Diagnosis: Abdominal distension (gaseous) Patient Data Age: 59 Gender: F Height: 1.75 m Weight: 102.8 kg Last Vital Signs Temp 37.1 C 11/09/24 13:02 Pulse 92 11/09/24 13:02 Resp 18 11/09/24 13:02 BP 145/86 H 11/09/24 13:02 Pulse Ox 100 11/09/24 13:02 O2 Del Method Room Air 11/09/24 13:02 Allergies Allergy/AdvReac Type Severity Reaction Status Date / Time No Known Allergies Allergy Verified 11/09/24 12:54 Home Medications ?Medication ?Instructions ?Recorded ?Confirmed ?Type losartan 50 mg-hydrochlorothiazide 1 tablet PO DAILY 05/31/20 11/09/24 History 12.5 mg tablet metoprolol succinate 50 mg 50 mg PO HS 05/31/20 11/09/24 History tablet,extended release 24 hr omeprazole 20 mg capsule,delayed 20 mg PO DAILY 05/31/20 11/09/24 History release atorvastatin 10 mg tablet 10 mg PO QPM 10/18/24 11/09/24 History Patient hx anesthesia problems: none Family hx anesthesia problems: none Results Review: All pre-operative results and documents have been reviewed as part of the pre-operative evaluation. [facility] Past Medical History Medical History Abnormal CT scan Diarrhea Bloating Chondromalacia Lateral meniscus tear Hypertension Wears glasses Medial meniscus tear Right knee pain Surgical History Surgical History History of cholecystectomy 2016 History of hysterectomy 2005 History of x3 Family History Family History Father Hypertension Family history of cardiovascular disease Family history of heart disease in male family member before age 55 Mother Hypertension Family history of malignant melanoma, Onset Age: 69 Diabetes mellitus Family history of diabetes mellitus in first degree relative Patient's mother is Grandparent Family history of cardiovascular disease Cerebrovascular accident Family history of malignant neoplasm Family history of heart disease in male family member before age 55 Other Arthritis Family history of pancreatic cancer Heart disease High cholesterol Melanoma Social History Social History Smoking status: Never smoker Second hand tobacco smoke exposure: No Alcohol intake: never Substance use: never Substance use type: does not use Living arrangements: with family Gender identity (if verbalized by the patient): Female Spiritual care concerns: No Anes - Eval Final PreProcedure Day of Procedure 11/09/24 13:47 Patient weight: obese Heart: regular rate and rhythm Lungs: clear to auscultation Airway: Mallampati scale class II Neurological: alert and oriented Last oral intake: >/= 8 hours ASA classification: III Emergent: no Anesthetic plan: proceed Anesthesia type and monitoring: general GIVS and standard monitoring Results Review: All pre-operative results and documents have been reviewed as part of the pre-operative evaluation. Informed Consent: The patient's anesthetic plan and its attendant risks and benefits were discussed with the patient/family/POA. Questions were solicited and answers provided to the satisfaction of the patient/family/POA.
--- NOTE | 2024-11-09 14:14 | PM.IMHP ---
H&P: HPI History of Present Illness Date/Time: 11/09/24 14:14 Chief Complaint: Diarrhea-screening Narrative: the patient was seen 1 month ago emergency room for persistent diarrhea. An imaging study showed thickened ileum, for which differential diagnosis includes gastroenteritis versus inflammatory bowel disease. However, the patient improved slowly, and is now asymptomatic. In addition she never had a colonoscopy, And she is now referred for one. Review of Systems Review of Systems: All systems reviewed & are unremarkable except as noted in HPI and below PMFSH Past Medical History Medical History Abnormal CT scan Diarrhea Bloating Chondromalacia Lateral meniscus tear Hypertension Wears glasses Medial meniscus tear Right knee pain Surgical History Surgical History History of cholecystectomy 2016 History of hysterectomy 2005 History of x3 Family History Family History Father Hypertension Family history of cardiovascular disease Family history of heart disease in male family member before age 55 Mother Hypertension Family history of malignant melanoma, Onset Age: 69 Diabetes mellitus Family history of diabetes mellitus in first degree relative Patient's mother is Grandparent Family history of cardiovascular disease Cerebrovascular accident Family history of malignant neoplasm Family history of heart disease in male family member before age 55 Other Arthritis Family history of pancreatic cancer Heart disease High cholesterol Melanoma Social History Social History Smoking status: Never smoker Second hand tobacco smoke exposure: No Alcohol intake: never Substance use: never Substance use type: does not use Living arrangements: with family Gender identity (if verbalized by the patient): Female Spiritual care concerns: No Meds Home Medications and Allergies Home Medications ?Medication ?Instructions ?Recorded ?Confirmed ?Type losartan 50 mg-hydrochlorothiazide 1 tablet PO DAILY 05/31/20 11/09/24 History 12.5 mg tablet metoprolol succinate 50 mg 50 mg PO HS 05/31/20 11/09/24 History tablet,extended release 24 hr omeprazole 20 mg capsule,delayed 20 mg PO DAILY 05/31/20 11/09/24 History release atorvastatin 10 mg tablet 10 mg PO QPM 10/18/24 11/09/24 History Allergies Allergy/AdvReac Type Severity Reaction Status Date / Time No Known Allergies Allergy Verified 11/09/24 12:54 Vital Signs Vital Signs - 24 hr 11/09/24 13:02 Temperature 98.7 F Pulse Rate 92 Respiratory Rate 18 Blood Pressure 145/86 H Pulse Oximetry 100 Oxygen Delivery Room Air Exam Const: General: cooperative and healthy appearing Resp: Effort & Inspection: normal respiratory effort and able to speak in complete sentences Auscultation: clear to auscultation bilaterally Cardio: Rate: regular rate Rhythm: regular rhythm GI: Inspection: normal to inspection GI Palp: No No hepatosplenomegaly present Auscultation: normal bowel sounds Rectal Exam: deferred Skin: General skin exam: normal color Psych: Appearance: grossly normal Mental Status: mental status grossly normal Assessment and Plan Assessment and plan (1) Diarrhea: Code(s): R19.7 - Diarrhea, unspecified Status: Acute Assessment and Plan: The patient is deemed a good candidate for the procedure. Consent signed. Will proceed.
[2024-11-09 14:35] VITALS: BP 125/74; PULSE 76; RESP 20; O2SAT 97
[2024-11-09 14:45] VITALS: BP 139/79; PULSE 72; RESP 20; O2SAT 100
[2024-11-09 14:55] VITALS: BP 127/86; PULSE 70; RESP 20; O2SAT 100
== END 2024-11-09 15:04 | disposition home or self-care (01) ==
PROVIDERS: PCP Family Medicine; Referring Provider Nurse Practitioner Family; Visit Provider Internal Medicine Gastroenterology
PROC: 0DJD8ZZ Inspection of Lower Intestinal Tract, Via Natural or Artificial Opening Endoscopic (ICD-10-PCS; CPT 45378; principal; 2024-11-09 14:30)
DX: R19.7 Diarrhea, unspecified (principal); I10 Essential (primary) hypertension; E66.9 Obesity, unspecified; Z68.33 Body mass index [BMI] 33.0-33.9, adult; Z98.890 Other specified postprocedural states; Z90.49 Acquired absence of other specified parts of digestive tract; Z80.8 Family history of malignant neoplasm of other organs or systems; Z80.0 Family history of malignant neoplasm of digestive organs; Z82.49 Family history of ischemic heart disease and other diseases of the circulatory system
CPT/HCPCS: 45378; J2704; J7120